=== PATIENT | female | born 1975 | race Two or more races ===

== ENCOUNTER → 2025-02-16 | Outpatient (CLI) | payer MEDICAID, SELFPAY ==
--- NOTE | 2025-02-16 15:00 | XR_ITS ---
Examination: Thyroid sonography complete TECHNIQUE: Syed scale sonographic images thyroid lobes Date and time: 8:30, 2024, 1530 hours INDICATIONS: Thyroid sonogram July 08, 2022 left thyroid upper pole nodule 3 x 3 mm FINDINGS: Right thyroid 3.8 cm No solid nodules Left thyroid 3.9 cm Upper pole 4 x 2 mm nodule IMPRESSION: Small upper pole thyroid nodule again noted
== END | disposition home or self-care (01) ==
LOC: CDIM 15:19
PROVIDERS: PCP Nurse Practitioner Family; Referring Provider Nurse Practitioner Family; Visit Provider Nurse Practitioner Family
DX: E04.1 Nontoxic single thyroid nodule (principal)
CPT/HCPCS: 76536

== ENCOUNTER 2025-07-16 13:18 | Outpatient (AMB) | payer MEDICAID, SELFPAY ==
[2025-07-16 13:35] VITALS: BP 114/66; PULSE 92; RESP 18; TEMP 36.7; O2SAT 98; BMI 25.2
--- NOTE | 2025-07-16 13:35 | AMB.GYNCLNOT ---
Vital Signs 07/16/25 13:35 Height 1.6 m Height Method Stated Weight 64.467 kg Weight Measurement Method Standing Scale BMI 25.2 BP 114/66 Blood Pressure Source Automatic Cuff Blood Pressure Location Left Upper Arm Position Sitting Respiration 18 Pulse 92 Pulse Source Monitor Temp 98.0 F Temp Source Oral Pulse Oximetry (%) 98 Oxygen Delivery Method Room Air Allergies/Home Meds Allergies & Medications Allergies NKA* Allergy (Uncoded 07/16/25 13:47) Medication Reconciliation No Known Home Medications 07/16/25 [History Confirmed 07/16/25] Intake Visit Data Collection New Patient or Established: Established Patient (seen at [facility] within 3 years) Reason for Visit:: PROLAPSE Collection Teller Required: Yes Collection Teller's name/title: TORIBIODRA CHAVARRIA Do You Feel Safe at Home: Yes Authorities Contacted: N/A PCP or OBGYN visit in last 3 months: Yes Hx Now: No Are you currently on any form of Control: No Pain Present Currently: No Pain Scale Used: Martin-Zhao/Numerical Pain scale:: 0 Smoking Status Smoking Status: Never smoker Immunizations Flu Vaccine in the Last 12 Months: No Flu Vaccine Exclusion Criteria: Refused by Patient Manager Solar history Manager Solar History Menstrual regularity: regular Flow: heavy Monthly: Yes How many days does period last: 5 Age at menarche: 9 Currently sexually active: Yes Questionnaires Covid-19 Vaccine Questionnaire Has patient been vacinated for Covid-19 Have you been vacinated for Covid-19: Yes PHQ-9 PHQ-2 Over the last 2 weeks, how often have you been bothered by any of the following problems? 1. Little interest or pleasure in doing things: not at all 2. Feeling down, depressed, or hopeless: not at all Total score: 0 PHQ-9 3. Trouble falling or staying asleep, or sleeping too much: Not at all 4. Feeling tired or having little energy: Not at all 5. Poor appetite or overeating: Not at all 6. Feeling bad about yourself - or that you are a failure or have let yourself or your family down: Not at all 7. Trouble concentrating on things, such as reading the newspaper or watching television: Not at all 8. Moving or speaking so slowly that other people could have noticed? - Or the opposite - being so fidgety or restless that you have been moving around a lot more than usual: not at all 9. Thoughts that you would be better off or of hurting yourself in some way: Not at all Total score: 0 Source: Developed by Drs. Raman Franco, Liz Jasso, Niko Mckeon and colleagues, with an educational julia from [employer]. Depression screen completed yes Social History Living Situation History Lives With: Family Housing: House Tobacco History Smoking Status: Never smoker Second Hand Smoke Exposure: No Alcohol History Alcohol Intake: Never Domestic Abuse History Do You Feel Safe at Home: Yes History of Present Illness HPI Narrative Chief Complaint Uterine prolapse, urinary incontinence with leakage during coughing, sneezing, and lifting heavy objects, sensation of pressure Nayla Conway is a 50-year-old female with a history of chronic pelvic pain and intermittent urinary incontinence who presents for consultation regarding uterine prolapse. The patient has a sensation of something pressing on her bladder and experiences urinary leakage with activities such as coughing, sneezing, and lifting heavy objects. She was previously seen by this clinician at a different facility in 2021, where she reported similar symptoms for about 3 weeks? duration at that time. Medical History: - History of thyroid nodule - History of anemia - Chronic pelvic pain - Intermittent urinary incontinence Surgical History: - section (date not specified) Obstetric History: - : 3, Para 3 - Two vaginal deliveries - One section delivery Exam Narrative Physical exam: Cystocele with 2nd degree uterine prolapse No overflow/incontinence with suprapubic pressure Office Procedures [facility] LOC & Office Proc's Nursing/Assessment Patient Status: Established Patient OB Clinic Nursing Assessment: Medication Reconciliation, Update PMH in EMR and Vital Signs OB Clinic Coordination of Care: Complex Care and Chronic Disease 1-5, Consent,records obtained, informed consent, Education Simp Pt/Fam, 1 Ins Authorization, Lab and Imaging orders, Results/Orders obtained and Staff clarify orders Miscellaneous Interventions: Pelvic no cultures Established Patient Charge Established Patient Point Assignment: 130 Established Patient Point Charge: EP Level 4 (120-155) Assessment & Plan Diagnosis / Problem List (1) Female genital prolapse, unspecified: Status: Acute (2) Disorder of urinary system, unspecified: Status: Acute Plan Pelvic organ prolapse Assessment: Patient has confirmed pelvic organ prolapse involving both uterine and bladder prolapse on physical examination. The prolapse was demonstrated with cough test showing descent of both the uterus and bladder. The uterine prolapse is not complete and does not require immediate surgical intervention. Patient reports symptoms of pelvic pressure and sensation of something pressing on her bladder. Previous ultrasound showed normal uterus with globular contour and no discrete masses. Plan: - Surgical options discussed including combined vaginal surgery with urology for comprehensive repair - Alternative option of bladder-only surgery initially, with uterine prolapse repair deferred until progression occurs - Patient declines hysterectomy/prolapse surgery at this time. - Offered referral to [facility] for suspension and incontinence procedure but she declined - Patient to return to PCP Dominga Conway for urology referral for bladder sling. - Uterine component can be addressed in future years if prolapse progresses Stress urinary incontinence Assessment: Patient experiences urinary leakage with coughing, sneezing, and lifting heavy objects, consistent with stress urinary incontinence. This is associated with her pelvic organ prolapse and bladder descent noted on examination. Plan: - Urology referral for specialized evaluation and management of urinary incontinence - Surgical repair options discussed as part of combined procedure with prolapse repair
== END 2025-07-16 14:05 | disposition home or self-care (01) ==
LOC: HODSOBC 13:18
PROVIDERS: Supervising Provider Obstetrics & Gynecology; Visit Provider Obstetrics & Gynecology
DX: N81.2 Incomplete uterovaginal prolapse (principal)
CPT/HCPCS: 99214; G0463